=== PATIENT | female | born 2005 | race Caucasian/White ===

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

== ENCOUNTER → 2024-09-12 16:04 | Outpatient (BNVA) | payer BC, MEDICAID, SELFPAY | PROVIDERS: PCP Nurse Practitioner Family; Visit Provider Nurse Practitioner Family | DX: Z91.018 Allergy to other foods (principal); R19.7 Diarrhea, unspecified | CPT/HCPCS: 80053; 81003; 82785; 83036; 84443; 85025; 86001; 86003; 86008 ==

== ENCOUNTER 2024-10-11 16:34 | Outpatient (CLI) | payer BC, MEDICAID, SELFPAY ==
--- NOTE | 2024-10-11 16:40 | US_ITS ---
WS: [id number] US transvaginal [id number] HISTORY: DYSMENORRHEA COMPARISON: None available. Uterus: 9.0 cm x 4.9 cm x 3.8 cm. Normal size anteverted uterus. No fibroid or mass. Endometrium: 1.2 cm. Normal trilaminar appearance of the endometrium. Right ovary: 3.5 cm x 3.0 cm x 2.9 cm. Normal size and vascularity, no cystic or solid masses. Left ovary: 3.1 cm x 2.2 cm x 2.8 cm. Normal size and vascularity, no cystic or solid masses. Small amount of free fluid in the cul-de-sac. US/US transvaginal [id number] IMPRESSION: 1. No acute abnormalities identified. 2. Small amount of free fluid is physiologic.
== END 2024-10-11 16:35 | disposition home or self-care (01) ==
LOC: RAD 16:36
PROVIDERS: PCP Nurse Practitioner Family; Visit Provider Nurse Practitioner Family
DX: N94.6 Dysmenorrhea, unspecified (principal)
CPT/HCPCS: 76830